=== PATIENT | male | born 1940 | race Caucasian/White ===

== ENCOUNTER 2017-08-06 16:06 | Emergency (ER) | payer MEDICARE, OTHER ==
[2017-08-06] MEDS ORDERED: Levofloxacin 500 MG Tab PO ONE (21:32)
--- NOTE | 2017-08-06 21:43 | EDM.PDOC ---
ED HPI GENERAL MEDICAL PROBLEM - General Chief Complaint: Genitourinary Problem Stated Complaint: BLOOD IN URINE,CONSTIPATION, [id number] Time Seen by Provider: 08/06/17 21:15 Source of Information: Reports: Patient, Family History Limitations: Reports: No Limitations - History of Present Illness INITIAL COMMENTS - FREE TEXT/NARRATIVE: ED with complaint of inability to void since last approximately 830 this am. Bladder feeling very full and uncomfortable. Patient notes blood in urine early this am. Patient also fell getting into truck later in am Denies injury. Did not hit head, fell to buttock then back. Recent change to medication last week for overactive bladder. No fever or chills. Suprapubic Pain Score (Numeric/FACES): 8 - Related Data Allergies Allergy/AdvReac Type Severity Reaction Status Date / Time erythromycin base Allergy Rash Verified 08/06/17 17:31 Home Meds: Home Meds Escitalopram [Lexapro] 1.5 tab PO DAILY 08/06/17 [History] Finasteride 1 tab PO DAILY 08/06/17 [History] Lisinopril [Prinivil] 1 tab PO ASDIRECTED 08/06/17 [History] Metoprolol Succinate 1 tab PO DAILY 08/06/17 [History] Tamsulosin [Flomax] 1 tab PO DAILY 08/06/17 [History] Trospium [Sanctura XR 24 Hr] 1 tab PO DAILY 08/06/17 [History] amLODIPine [Norvasc] 1 tab PO DAILY 08/06/17 [History] atorvaSTATin [Lipitor] 1 tab PO DAILY 08/06/17 [History] buPROPion HCl [Wellbutrin Xl] 1 tab PO DAILY 08/06/17 [History] hydrALAZINE [Apresoline] 1 tab PO TID 08/06/17 [History] Past Medical History HEENT History: Reports: None Respiratory History: Reports: None Gastrointestinal History: Reports: None Genitourinary History: Reports: None Musculoskeletal History: Reports: None Neurological History: Reports: CVA, Other (See Below) Other Neuro History: CVA March 2017 Psychiatric History: Reports: None Endocrine/Metabolic History: Reports: None Hematologic History: Reports: None Immunologic History: Reports: None Oncologic (Cancer) History: Reports: None Dermatologic History: Reports: None - Past Surgical History Cardiovascular Surgical History: Reports: Other (See Below) Other Cardiovascular Surgeries/Procedures: has something in his chest monitoring his heart Social & Family History - Tobacco Use Smoking Status *Q: Never Smoker - Recreational Drug Use Recreational Drug Use: No ED ROS GENERAL - Review of Systems Review Of Systems: ROS reveals no pertinent complaints other than HPI. ED EXAM, RENAL/ - Physical Exam Exam: See Below Exam Limited By: Language Barrier General Appearance: Alert, No Apparent Distress, Obese Eye Exam: Bilateral Eye: PERRL Ears: Normal External Exam Nose: Normal Inspection Throat/Mouth: Normal Inspection Head: Atraumatic, Normocephalic Neck: Normal Inspection Respiratory/Chest: No Respiratory Distress, Lungs Clear Cardiovascular: Normal Peripheral Pulses, Regular Rate, Rhythm GI/Abdominal: Normal Bowel Sounds, Soft. No: Distended (Male) Exam: Other (mild suprapubic tenderness with palpation. Clark in place Approximately 1500ml in gravity bag, gross hematuria in back few shred clots in lower tubing, current drainage clear yellow. ) Back Exam: Normal Inspection, Full Range of Motion. No: CVA Tenderness (L), CVA Tenderness (R), Muscle Spasm, Paraspinal Tenderness, Vertebral Tenderness Extremities: Other (no pelvic or hip pain) Neurological: Alert, Oriented Skin Exam: Warm, Dry, Intact, Ecchymosis (left buttock. ) Course - Vital Signs Last Recorded V/S: Last Vital Signs Temp 98.6 F 08/06/17 17:40 Pulse 84 08/06/17 17:40 Resp 16 08/06/17 17:40 BP 173/88 H 08/06/17 17:40 Pulse Ox 93 L 08/06/17 17:40 - Orders/Labs/Meds Orders: Active Orders 24 hr Category Date Time Status Clark Catheter Insertion [Insert Urinary Catheter] [OM. Care 08/06/17 17:45 Ordered PC] Q24H Urinary Catheter Assessment [RC] ASDIRECTED Care 08/06/17 17:37 Active CULTURE URINE [RM] Stat Lab 08/06/17 17:49 Received Labs: Laboratory Tests 08/06/17 08/06/17 08/06/17 Range/Units 17:49 18:00 18:00 WBC 12.9 H (5.0-10.0) 10^3/uL RBC 4.89 (4.6-6.2) 10^6/uL Hgb 13.1 L (14.0-18.0) g/dL Hct 42.1 (40.0-54.0) % MCV 86.1 (80-100) fL MCH 26.8 L (27.0-34.0) pg MCHC 31.1 L (33.0-35.0) g/dL Plt Count 211 (150-450) 10^3/uL Neut % (Auto) 84.8 H (42.2-75.2) % Lymph % (Auto) 6.9 L (20.5-50.1) % [place] % (Auto) 6.6 (2-8) % Eos % (Auto) 1.4 (1.0-3.0) % Baso % (Auto) 0.3 (0.0-1.0) % PT 10.4 (9.0-12.0) SEC INR 1.0 (0.9-1.2) Sodium (135-145) mmol/L Potassium (3.6-5.0) mmol/L Chloride (101-111) mmol/L Carbon Dioxide (21.0-31.0) mmol/L Anion Gap BUN (7-18) mg/dL Creatinine (0.6-1.3) mg/dL Est Cr Clr Drug Dosing mL/min Estimated GFR (MDRD) BUN/Creatinine Ratio Glucose (74-105) mg/dL Calcium (8.4-10.2) mg/dl Total Bilirubin (0.2-1.0) mg/dL AST (10-42) IU/L ALT (10-60) IU/L Alkaline Phosphatase (42-121) IU/L Total Protein (6.7-8.2) g/dl Albumin (3.2-5.5) g/dl Globulin Albumin/Globulin Ratio Urine Color Red (YELLOW) Urine Appearance Turbid (CLEAR) Urine pH 7.0 (5.0-9.0) Ur Specific [place] 1.015 (1.005-1.030) Urine Protein Trace H (NEGATIVE) Urine Glucose (UA) Negative (NEGATIVE) Urine Ketones Negative (NEGATIVE) Urine Occult Blood Large H (NEGATIVE) Urine Nitrite Positive H (NEGATIVE) Urine Bilirubin Negative (NEGATIVE) Urine Urobilinogen 1.0 (0.2-1.0) mg/dL Ur Leukocyte Esterase Trace H (NEGATIVE) Urine RBC 20-30 H /HPF Urine WBC >100 H (0-5/HPF) /HPF Ur Epithelial Cells Rare /HPF Amorphous Sediment Few (0/HPF) /HPF Urine Bacteria Many H (0-FEW/HPF) /HPF Urine Mucus Few H /LPF 08/06/17 Range/Units 18:00 WBC (5.0-10.0) 10^3/uL RBC (4.6-6.2) 10^6/uL Hgb (14.0-18.0) g/dL Hct (40.0-54.0) % MCV (80-100) fL MCH (27.0-34.0) pg MCHC (33.0-35.0) g/dL Plt Count (150-450) 10^3/uL Neut % (Auto) (42.2-75.2) % Lymph % (Auto) (20.5-50.1) % [place] % (Auto) (2-8) % Eos % (Auto) (1.0-3.0) % Baso % (Auto) (0.0-1.0) % PT (9.0-12.0) SEC INR (0.9-1.2) Sodium 139 (135-145) mmol/L Potassium 3.7 (3.6-5.0) mmol/L Chloride 100 L (101-111) mmol/L Carbon Dioxide 31.0 (21.0-31.0) mmol/L Anion Gap 11.7 BUN 22 H (7-18) mg/dL Creatinine 1.3 (0.6-1.3) mg/dL Est Cr Clr Drug Dosing 39.51 mL/min Estimated GFR (MDRD) 54 BUN/Creatinine Ratio 16.92 Glucose 112 H (74-105) mg/dL Calcium 9.2 (8.4-10.2) mg/dl Total Bilirubin 0.9 (0.2-1.0) mg/dL AST 23 (10-42) IU/L ALT 24 (10-60) IU/L Alkaline Phosphatase 93 (42-121) IU/L Total Protein 7.0 (6.7-8.2) g/dl Albumin 4.4 (3.2-5.5) g/dl Globulin 2.6 Albumin/Globulin Ratio 1.69 Urine Color (YELLOW) Urine Appearance (CLEAR) Urine pH (5.0-9.0) Ur Specific [place] (1.005-1.030) Urine Protein (NEGATIVE) Urine Glucose (UA) (NEGATIVE) Urine Ketones (NEGATIVE) Urine Occult Blood (NEGATIVE) Urine Nitrite (NEGATIVE) Urine Bilirubin (NEGATIVE) Urine Urobilinogen (0.2-1.0) mg/dL Ur Leukocyte Esterase (NEGATIVE) Urine RBC /HPF Urine WBC (0-5/HPF) /HPF Ur Epithelial Cells /HPF Amorphous Sediment (0/HPF) /HPF Urine Bacteria (0-FEW/HPF) /HPF Urine Mucus /LPF Meds: Medications Discontinued Medications Generic Name Dose Route Start Last Admin Trade Name Freq PRN Reason Stop Dose Admin Levofloxacin 500 mg 08/06/17 21:32 08/06/17 21:38 Levaquin PO 08/06/17 21:33 500 mg ONETIME ONE Administration Departure - Departure Time of Disposition: 21:36 Disposition: Home, Self-Care 01 Condition: Good Clinical Impression: UTI, Urinary tract infectious disease, Retention of urine Hematuria Qualifiers: Hematuria type: gross Qualified Code(s): R31.0 - Gross hematuria - Discharge Information Instructions: Clark Catheter Care, Adult, Urinary Tract Infection, Adult, Easy- to-Read Forms: ED Department Discharge Additional Instructions: Clinic follow up on Tuesday with primary care provider clark catheter care as instructed Levaquin 500mg daily for one week Pyridium 100mg one every 8 hours as needed for bladder spasms- note will change color of urine - My Orders Last 24 Hours: My Active Orders 08/06/17 17:49 CULTURE URINE [RM] Stat - Assessment/Plan Last 24 Hours: My Active Orders 08/06/17 17:49 CULTURE URINE [RM] Stat
== END 2017-08-06 21:48 | disposition home or self-care (01) ==
LOC: DL.ED 16:06
DX: N39.0 Urinary tract infection, site not specified (principal); Z88.1 Allergy status to other antibiotic agents; Z79.899 Other long term (current) drug therapy
CPT/HCPCS: 36415; 51702; 80053; 81001; 85025; 85610; 87086; 87088; 87186; 99283; A9270